=== PATIENT | male | born 1955 | race Caucasian/White ===

== ENCOUNTER 2016-08-12 10:04 | Observation (INO) | payer OTHER ==
[~2016-08-12] VITALS: Ht 193 cm; Wt 133.0 kg
[2016-08-12 11:02] LABS: BASO % 0.1 % (0.2-1.2); EOS % 0.5 % (0.8-7.0); GRAN # 6.6 10_X3_uL (1.8-5.4); GRAN % 85.5 % (34.0-67.9); HEMATOCRIT 47.8 % (40-51); HEMOGLOBIN 16.4 g/dL (13.7-17.5); LYMPH # 0.7 10_X3_uL (1.3-3.6); LYMPH % 8.6 % (21.8-53.1); MEAN CORPUSCULAR HEMOGLOBIN 31.3 pg (27.0-33.0); MEAN CORPUSCULAR HGB CONC 34.3 g/dL (32.0-36.0); MEAN CORPUSCULAR VOLUME 91.2 fL (79-92); MEAN PLATELET VOLUME 10.9 fl (7.5-11.5); MONO # 0.4 10_X3_uL (0.3-0.8); MONO % 5.3 % (5.3-12.2); PLATELET COUNT 143 x10_3/uL (163-337); RED BLOOD COUNT 5.24 x10_6/uL (4.6-6.1); RED CELL DISTRIBUTION WIDTH 14.9 % (11.6-14.4); WHITE BLOOD COUNT 7.7 x10_3/uL (4.2-9.1)
[2016-08-12 11:19] LABS: ALKALINE PHOSPHATASE 72 U/L (50-136); ALT/SGPT 25 U/L (7.53-40.17); AMYLASE 39 U/L (15.62-74.58); AST/SGOT 17 U/L (6.66-35.34); BILIRUBIN,TOTAL 0.35 mg/dL (0.0-1.0); BLOOD UREA NITROGEN 19 mg/dL (7-18); CALCIUM 8.7 mg/dL (8.7-10.7); CARBON DIOXIDE 26 mmol/L (21-32); CREATINE KINASE 45 U/L (35-232); CREATININE 0.9 mg/dL (0.6-1.3); GLUCOSE,RANDOM 134 mg/dL (70-99); LIPASE 14 U/L (6.75-60.75); SODIUM 138 mmol/L (136-145); TOTAL PROTEIN 7.1 gm/dL (6.4-8.2)
[2016-08-12 11:20] LABS: URINE BILIRUBIN NEGATIVE (NEGATIVE); URINE BLOOD TRACE (NEGATIVE); URINE GLUCOSE (UA) NORMAL (NORMAL); URINE KETONE NEGATIVE (NEGATIVE); URINE LEUKOCYTE ESTERASE TRACE (NEGATIVE); URINE NITRATE NEGATIVE (NEGATIVE); URINE PROTEIN TRACE (NEGATIVE)
[2016-08-12 11:48] LABS: URINE BACTERIA TRACE (NONE SEEN); URINE MUCUS TRACE; URINE RBC 0-5 /[HPF] (0-2); URINE SQUAMOUS EPITHELIAL CELL 0-10 /[HPF] (NONE SEEN); URINE WBC 0-5 /[HPF] (0-3); URINE YEAST FEW (NONE SEEN)
== END 2016-08-14 11:13 | disposition home or self-care (01) ==
LOC: ER 10:04 → MS 14:07
PROVIDERS: Family Medicine; ADMIT Surgery
DX: K81.1 Chronic cholecystitis (principal); R11.2 Nausea with vomiting, unspecified; R10.12 Left upper quadrant pain; R10.11 Right upper quadrant pain; I10 Essential (primary) hypertension; I25.10 Atherosclerotic heart disease of native coronary artery without angina pectoris; J44.9 Chronic obstructive pulmonary disease, unspecified; Z95.0 Presence of cardiac pacemaker; Z95.5 Presence of coronary angioplasty implant and graft; Z88.5 Allergy status to narcotic agent; Z79.899 Other long term (current) drug therapy; Z87.19 Personal history of other diseases of the digestive system
CPT/HCPCS: 36415; 76705; 78227; 80053; 81001; 82150; 82550; 82553; 83690; 85025; 93005; 94640; 94664; 96361; 96365; 96374; 96375; 99070; 99285-25; A9537; G0378